=== PATIENT | male | born 1995 | race African-American/Black ===

== ENCOUNTER 2017-01-15 16:14 | Emergency (ER) | payer OTHER ==
[~2017-01-15] VITALS: Ht 180.3 cm; Wt 69.5 kg
[2017-01-15 16:17] VITALS: Ht 180.3 cm; Wt 69.5 kg
[2017-01-15] MEDS ORDERED: ONDANSETRON (ODT) 4 MG TAB ODT STA (17:01)
[2017-01-15] MEDS ORDERED: MECLIZINE 12.5 MG TAB PO ONE (17:30)
[2017-01-15] MEDS ORDERED: EXCED PO (17:30)
[2017-01-15] MEDS ORDERED: ACETAMINOPHEN 325 MG TAB PO ONE (17:30)
[2017-01-15] MEDS ORDERED: ONDA4TAB8 PO (17:32)
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
[2017-01-15 19:20] VITALS: BP 118/57; PULSE 77; RESP 17; TEMP 98.3
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
== END 2017-01-15 19:21 | disposition home or self-care (01) ==
LOC: FTE 16:14
DX: G44.309 Post-traumatic headache, unspecified, not intractable (principal); F07.81 Postconcussional syndrome
CPT/HCPCS: 70450; Z7610